=== PATIENT | female | born 1990 | race Caucasian/White ===

== ENCOUNTER 2016-03-30 04:28 | Emergency (ER) | payer OTHER ==
[2016-03-30 04:36] VITALS: BP 139/98
[2016-03-30 05:23] LABS: Basophils % (Auto) 0.2 % (0.0-1.8); Eosinophils % (Auto) 0.4 % (0.0-4.3); Hematocrit 39.6 % (30.3-42.9); Hemoglobin 13.5 gm/dl (10.1-14.3); Mean Corpuscular HGB Conc 34 % (30-34); Mean Corpuscular Hemoglobin 32 pg (28-32); Mean Corpuscular Volume 93 fl (79-97); Platelet Count 244 K/mm3 (140-440); Red Blood Count 4.24 M/mm3 (3.65-5.03); Red Cell Distribution Width 11.9 % (13.2-15.2); White Blood Count 10.8 K/mm3 (4.5-11.0)
[2016-03-30 05:55] LABS: Alanine Aminotransferase 16 units/L (7-56); Albumin 4.7 g/dL (3.9-5); Albumin/Globulin Ratio 1.4 %; Alkaline Phosphatase 59 units/L (35-129); Anion Gap 18 mmol/L; BUN/Creatinine Ratio 8.57; Bilirubin,Total 0.6 mg/dL (0.1-1.2); Blood Urea Nitrogen 6 mg/dL (7-17); Calcium 9.7 mg/dL (8.4-10.2); Carbon Dioxide 23 mmol/L (22-30); Chloride 98.1 mmol/L (98-107); Glucose 128 mg/dL (65-100); Lipase 98 units/L (13-60); Potassium 3.6 mmol/L (3.6-5.0); Sodium 135 mmol/L (137-145)
--- NOTE | 2016-04-01 15:54 | ED Elopement Review ---
ED Pt Elopement review - Results review Lab results: Laboratory Tests 03/30/16 03/30/16 03/30/16 05:06 05:06 05:06 WBC 10.8 RBC 4.24 Hgb 13.5 Hct 39.6 MCV 93 MCH 32 MCHC 34 RDW 11.9 L Plt Count 244 Lymph % (Auto) 18.2 [place] % (Auto) 3.9 Eos % (Auto) 0.4 Baso % (Auto) 0.2 Lymph # 2.0 [place] # 0.4 Eos # 0.0 Baso # 0.0 Seg Neutrophils % 77.3 H Seg Neutrophils # 8.4 H Sodium 135 L Potassium 3.6 Chloride 98.1 Carbon Dioxide 23 Anion Gap 18 BUN 6 L Creatinine 0.7 Estimated GFR > 60 BUN/Creatinine Ratio 8.57 Glucose 128 H Calcium 9.7 Total Bilirubin 0.6 AST 20 ALT 16 Alkaline Phosphatase 59 Total Protein 8.0 Albumin 4.7 Albumin/Globulin Ratio 1.4 Lipase 98 H HCG, Qual Negative - Call Back decision Pt Call Back Decision: No action required
== END 2016-03-30 08:27 | disposition left against medical advice (07) ==
LOC: ED 04:28
DX: R10.9 Unspecified abdominal pain (principal); Z53.21 Procedure and treatment not carried out due to patient leaving prior to being seen by health care provider
CPT/HCPCS: 36415; 80053; 83690; 84703; 85025